=== PATIENT | female | born 1960 | race Caucasian/White ===

== ENCOUNTER 2018-01-16 17:15 | Emergency (ER) | payer BC ==
[~2018-01-16] VITALS: Ht 162.6 cm; Wt 89.4 kg
[2018-01-16] MEDS ORDERED: BASAGLAR K100 UNIT/1 SQ (17:25)
[2018-01-16] MEDS ORDERED: ATORVASTATIN CA40 MG PO (17:25)
[2018-01-16] MEDS ORDERED: KLONOPIN 0.5MG0.5 MG PO (17:25)
[2018-01-16] MEDS ORDERED: CARVEDILOL12.5 MG PO (17:26)
[2018-01-16] MEDS ORDERED: FUROSEMIDE20 MG PO (17:26)
[2018-01-16] MEDS ORDERED: NEURONTIN300 MG/CAP (17:26)
[2018-01-16] MEDS ORDERED: MACROBID 100 M100 MG PO (17:26)
[2018-01-16] MEDS ORDERED: CRANBERRY200 MG PO (17:26)
[2018-01-16] MEDS ORDERED: NOVOLOG FLEX100 U/ML SQ (17:27)
[2018-01-16] MEDS ORDERED: PRAMIPEXOLE DI0.5 MG PO (17:27)
[2018-01-16] MEDS ORDERED: VENLAFAXINE HY150 MG PO (17:27)
[2018-01-16] MEDS ORDERED: PANTOPRAZOLE SO40 MG PO (17:27)
[2018-01-16] MEDS ORDERED: OXYCODONE PO (17:27)
[2018-01-16] MEDS ORDERED: VENLAFAXINE HCL75 M3 PO (17:28)
[2018-01-16 18:00] LABS: BASO # 0.1 (0.02-0.10); EOS # 0.3 (0.04-0.40); EOS % 3.1 % (1.0-5.0); HEMATOCRIT 42.1 % (37.0-47.0); HEMOGLOBIN 13.5 g/dL (12.5-16.0); LYMPH# 2.4 (1.50-4.00); MEAN CELL VOLUME 92 fl (78-100); MEAN CORPUSCULAR HEMOGLOBIN 30 pg (27-31); MEAN CORPUSCULAR HGB CONC 32 g/dL (33-37); MEAN PLATELET VOLUME 10.2 fl (7.4-10.4); MONO # 0.9 (0.20-0.80); NEU # 6.1 (1.40-6.50); PLATELET COUNT 194 K/mm3 (130-400); RED BLOOD COUNT 4.57 M/mm3 (4.10-5.30); RED CELL DISTRIBUTION WIDTH 15.6 % (11.5-14.5); WHITE BLOOD COUNT 9.7 K/mm3 (4.8-10.8)
[2018-01-16 18:12] LABS: ALBUMIN 3.7 g/dL (3.5-5.0); BUN/CREATININE RATIO 35.9 (6.0-26.0); CALCIUM 9.1 mg/dL (8.4-10.2); POTASSIUM 3.9 mmol/L (3.6-5.0); TOTAL BILIRUBIN 0.2 mg/dL (0.2-1.3); TOTAL PROTEIN 6.6 g/dL (6.3-8.2)
[2018-01-16 18:20] LABS: URINE APPEARANCE CLEAR; URINE BILIRUBIN NEGATIVE (NEGATIVE); URINE BLOOD NEGATIVE (NEGATIVE); URINE COLOR YELLOW; URINE GLUCOSE 50 mg/dL mg/dL (NEGATIVE); URINE KETONE NEGATIVE (NEGATIVE); URINE LEUKOCYTE ESTERASE NEGATIVE (NEGATIVE); URINE NITRATE NEGATIVE (NEGATIVE); URINE PROTEIN(semi-quant) NEGATIVE (NEGATIVE); URINE UROBILINOGEN NORMAL (NORMAL); URINE WBC 0-1 /hpf (0-3)
[2018-01-16] MEDS ORDERED: NOVAPLUS SQ (18:24)
[2018-01-16] MEDS ORDERED: NOVAPLUS L60 MG/0.6 SQ (18:24)
[2018-01-16 18:36] VITALS: BP 141/73
== END 2018-01-16 18:37 ==
LOC: ED 17:15
PROVIDERS: Nurse Practitioner Primary Care
DX: I82.4Z2 Acute embolism and thrombosis of unspecified deep veins of left distal lower extremity (principal); E11.9 Type 2 diabetes mellitus without complications; Z89.511 Acquired absence of right leg below knee; Z99.3 Dependence on wheelchair; Z79.899 Other long term (current) drug therapy; Z79.4 Long term (current) use of insulin
CPT/HCPCS: J1650

== ENCOUNTER → 2018-01-16 | Outpatient (CLI) | payer BC ==
[~2018-01-16] MED LIST: ATORVASTATIN CA40 MG PO; BASAGLAR K100 UNIT/1 SQ; CARVEDILOL12.5 MG PO; CRANBERRY200 MG PO; FUROSEMIDE20 MG PO; KLONOPIN 0.5MG0.5 MG PO; MACROBID 100 M100 MG PO; NEURONTIN300 MG/CAP; NOVAPLUS L60 MG/0.6 SQ; NOVAPLUS SQ; NOVOLOG FLEX100 U/ML SQ; OXYCODONE PO; PANTOPRAZOLE SO40 MG PO; PRAMIPEXOLE DI0.5 MG PO; VENLAFAXINE HCL75 M3 PO; VENLAFAXINE HY150 MG PO
== END ==
LOC: RAD 16:09
DX: R79.89 Other specified abnormal findings of blood chemistry (principal); R60.0 Localized edema